=== PATIENT | female | born 1975 | race Caucasian/White ===

== ENCOUNTER 2018-04-04 14:01 | Inpatient (IN) | payer MEDICAID ==
[~2018-04-04] VITALS: Ht 165.1 cm; Wt 87.3 kg
[2018-04-04 14:11] VITALS: Ht 165.1 cm; Wt 87.3 kg
[2018-04-04 17:16] LABS: BASOPHIL % 0.1 % (0-2); PLATELET COUNT 308 x10^3mcL (130-400); RED CELL DISTRIBUTION WIDTH 12.9 % (11.5-14.5)
[2018-04-04 17:28] LABS: CALCIUM 8.9 mg/dL (8.5-10.1); CARBON DIOXIDE 27.4 mmol/L (21-32); CHLORIDE SERUM 105 mmol/L (98-107); CREATININE SERUM 0.8 mg/dL (0.6-1.0); GFR1 > 60 mL/min; GLUCOSE SERUM 89 mg/dL (74-106); POTASSIUM SERUM 3.7 mmol/L (3.5-5.1); SODIUM SERUM 138 mmol/L (136-145)
[2018-04-04 17:32] LABS: ALBUMIN 3.4 g/dL (3.4-5.0); ALKALINE PHOSPHATASE 87 U/L (46-116); ALT/SGPT 18 U/L (14-59); AST/SGOT 17 U/L (15-37); BILIRUBIN TOTAL 0.24 mg/dL (0.20-1.00); CHOLESTEROL 194 mg/dL (<200); CHOLESTEROL/HDL RATIO 4.1; HDL CHOLESTEROL 47 mg/dL (40-60); LIPASE 128 IU/L (73-393); TOTAL PROTEIN, SERUM 7.4 g/dL (6.4-8.2); TRIGLYCERIDES 148 mg/dL (<150)
[2018-04-04 17:45] LABS: T3 TOTAL 1.02 ng/mL
[2018-04-04 18:06] LABS: FREE T4 0.73 ng/dL (0.76-1.46); FREE THYROXINE INDEX 2.2 ug/dL (1.4-4.5); T4(THYROXINE) 6.7 ug/dL (4.7-13.3)
[2018-04-04 18:46] LABS: microscopic required? YES; urine erythrocyte NEGATIVE (NEGATIVE)
[2018-04-04] MEDS ORDERED: ADVIL100 M1 (19:06)
[2018-04-04 20:16] LABS: MAGNESIUM 2.1 mg/dL (1.8-2.4); PHOSPHOROUS 3.3 mg/dL (2.5-4.9)
[2018-04-04 20:19] VITALS: BP 103/53
[2018-04-04 21:24] VITALS: BP 105/60
[2018-04-05 05:46] VITALS: BP 109/59
[2018-04-05 09:39] VITALS: BP 97/57
[2018-04-05 13:44] VITALS: BP 100/65
[2018-04-05 18:42] VITALS: BP 104/61
[2018-04-05 20:43] VITALS: BP 103/64
[2018-04-06 05:45] VITALS: BP 108/59
[2018-04-06 06:22] LABS: BASOPHIL % 0.2 % (0-2); PLATELET COUNT 283 x10^3mcL (130-400); RED CELL DISTRIBUTION WIDTH 13.1 % (11.5-14.5)
[2018-04-06 06:36] LABS: CALCIUM 7.7 mg/dL (8.5-10.1); CARBON DIOXIDE 27.7 mmol/L (21-32); CHLORIDE SERUM 105 mmol/L (98-107); CREATININE SERUM 0.8 mg/dL (0.6-1.0); GFR1 > 60 mL/min; GLUCOSE SERUM 84 mg/dL (74-106); MAGNESIUM 1.9 mg/dL (1.8-2.4); PHOSPHOROUS 2.9 mg/dL (2.5-4.9); POTASSIUM SERUM 3.8 mmol/L (3.5-5.1); SODIUM SERUM 139 mmol/L (136-145)
[2018-04-06 10:17] VITALS: BP 95/56
[2018-04-06] MEDS ORDERED: LEXAPRO10 MG PO (14:26)
[2018-04-06 14:50] VITALS: BP 105/65
[2018-04-06 14:52] VITALS: BP 105/61
== END 2018-04-06 16:03 | disposition home or self-care (01) | DRG 756 ==
LOC: ED 14:01 → DU 18:40
PROVIDERS: Family Medicine; Specialist
DX: F41.1 Generalized anxiety disorder (principal); E03.9 Hypothyroidism, unspecified; Z68.31 Body mass index [BMI] 31.0-31.9, adult
CPT/HCPCS: 36600; 83880; 84439; 85378; J7030; Q0092; Q0162; Q9967

== ENCOUNTER 2018-12-25 17:36 | Emergency (ER) | payer MEDICAID ==
[~2018-12-25] VITALS: Ht 165.1 cm; Wt 95.7 kg
[~2018-12-25 17:36] MED LIST: ADVIL100 M1; LEXAPRO10 MG PO
[2018-12-25 17:45] VITALS: Ht 165.1 cm; Wt 95.7 kg
[2018-12-25 19:03] VITALS: BP 120/81
== END 2018-12-25 19:03 | disposition home or self-care (01) ==
LOC: ED 17:36
DX: N39.0 Urinary tract infection, site not specified (principal); F32.9 Major depressive disorder, single episode, unspecified
CPT/HCPCS: J0696